=== PATIENT | male | born 1965 | race Caucasian/White ===

== ENCOUNTER → 2016-07-15 | Day surgery (SDC) | payer BC, OTHER ==
[~2016-07-15] MED LIST: ALEVE220 M1 PO; ENZYME DIGEST1 EACH PO; PRILOSEC PO
--- NOTE | ~2016-07-15 | OR ---
Unit #: [id number] #: [id number] Patient: BLAISE CHING [id number] [address] [place], [place] [address] [id number] O MR#: [id number] NAME: BLAISE CHING ROOM: Date of Procedure: 07/15/2016 Admission Date: 07/15/2016 Surgeon: Emil Machado M.D. : 1965 Attending Physician: Emil Machado M.D. Primary Care Physician: Generic Doctor Not In System OPERATIVE REPORT PREOPERATIVE DIAGNOSES Cervical disk disease, cervical spondylosis, neck pain, cervical radiculopathy. POSTOPERATIVE DIAGNOSES Cervical disk disease, cervical spondylosis, neck pain, cervical radiculopathy. PROCEDURE PERFORMED Cervical epidural steroid injection with fluoroscopic guidance for needle localization. INDICATIONS FOR PROCEDURE The patient is a 50-year-old male with 6 to 8 month history of worsening neck and right upper extremity pain that radiates down to his hand. There is no weakness. There is some intermittent numbness. drive or lifting. He is unsure of the specific etiology after some lifting. He failed to settle with conservative measures including chiropractic. Examination is consistent with a radicular irritation. MRI showed pathology with moderately severe neuroforaminal narrowing to the right at the C4-5 level. Also some right-sided facet disease with edema at the C7-T1. Impression is, this is more radicular pain. He has failed to settle with conservative treatment. He has nonsurgical pathology. Plan is for trial of epidural steroids. Risks and benefits of all which have been reviewed. There is a chance that right C7-T1 facet joints may be contributing the problem with this. If he did not settle with the epidurals, we would consider facet injection at that level. DESCRIPTION OF PROCEDURE The patient was placed in the seated position. Standard monitors were applied. Sterile prep and drape of the cervical area was performed. The skin then at the C5 level was localized with 1% lidocaine. An 18-gauge [employer] needle was then advanced via hanging drop technique and fluoroscopic guidance in toward the epidural space. After confirming proper positioning with fluoroscopy and radiographic contrast, 80 mg of Depo-Medrol and 2 mL of preservative-free normal saline were deposited. The patient tolerated the procedure otherwise well and was discharged to the recovery room in stable condition. Dictated by... Unit #: [id number] #: [id number] Patient: BLAISE CHING Jennifer Morton/[place] TD: 07/16/2016 03:56 JOB #: [id number] CC: Dereje Plata M.D. OPERATIVE REPORT Page 1 of 1 X Emil Machado MD X PROCEDURE OPERATIVE NOTE
== END | disposition home or self-care (01) ==
LOC: CCSC 06:52
DX: M50.10 Cervical disc disorder with radiculopathy, unspecified cervical region (principal); M47.22 Other spondylosis with radiculopathy, cervical region
CPT/HCPCS: J1040; J2250

== ENCOUNTER → 2016-07-29 | Day surgery (SDC) | payer BC, OTHER ==
--- NOTE | ~2016-07-29 | OR ---
Unit #: [id number] #: [id number] Patient: BLAISE CHING [id number] [address] [place], [place] [address] [id number] O MR#: [id number] NAME: BLAISE CHING ROOM: Date of Procedure: 07/29/2016 Admission Date: 07/29/2016 Surgeon: Emil Machado M.D. : 1965 Attending Physician: Emil Machado M.D. Primary Care Physician: Generic Doctor Not In System OPERATIVE REPORT PREOPERATIVE DIAGNOSES Neck pain, cervical radiculopathy, cervical facet and disk disease. POSTOPERATIVE DIAGNOSES Neck pain, cervical radiculopathy, cervical facet and disk disease. PROCEDURE PERFORMED Cervical epidural steroid injection with fluoroscopic guidance for needle localization. INDICATIONS FOR PROCEDURE The patient is a 50-year-old male with neck and right upper extremity pain and paresthesia, not settle with conservative treatment. This all started after left has not gotten better and right showed a right-sided both spondylosis, right neural foraminal narrowing at the C4-5 level. At C3-4 and C4-5, there is some mild left neural foraminal narrowing at C7-T1. There is moderate right facet disease with some edema and spurring. Initial epidural steroid injection 2 weeks ago, resulted in excellent control in all components of the pain for about a week, then return of symptoms. Based on a good partial response of his symptoms, pathology, and failure of other modalities, we are going to proceed with a second injection today. Based on the pathology, I do expect a better longer lasting result, he may well benefit from a third injection. DESCRIPTION OF PROCEDURE The patient was placed in a seated position. Standard monitors were applied. Sterile prep and drape of the cervical area was performed. The skin at the C5 level was localized with 1% lidocaine. An 18-gauge [employer] needle was then advanced via hanging drop technique and fluoroscopic guidance in toward the epidural space. The patient did not complain of pain or paresthesia during needle advancement. After confirming proper positioning with fluoroscopy and radiographic contrast, a dose of 80 mg of Depo-Medrol and 2 mL of preservative-free normal saline were deposited. The patient was driving and so no local was used. The needle was flushed and removed. The patient tolerated the entire procedure otherwise well and was discharged to the recovery room in stable condition. Dictated by... Emil Machado M.D. [facility] Unit #: [id number] #: [id number] Patient: BLAISE CHING TD: 07/29/2016 09:53 JOB #: [id number] OPERATIVE REPORT Page 1 of 1 X Emil Machado MD X PROCEDURE OPERATIVE NOTE
== END | disposition home or self-care (01) ==
LOC: CCSC 07:32
DX: M50.121 Cervical disc disorder at C4-C5 level with radiculopathy (principal); M47.22 Other spondylosis with radiculopathy, cervical region; M99.71 Connective tissue and disc stenosis of intervertebral foramina of cervical region
CPT/HCPCS: J1040; J2250

== ENCOUNTER → 2016-10-11 | Outpatient (CLI) | payer BC, OTHER ==
--- NOTE | ~2016-10-11 | CR212 ---
[facility] A Service of [facility] / [facility] RADIOLOGY TEXT RESULTS PATIENT: BLAISE CHING LOCATION: [facility] : [birth year] UNIT #: [id number] AGE: [address]: Rayshawn Valderrama MD SEX: M ORDER DR: [id number] [facility] [address] [place], [place] [address] [id number] O MR#: [id number] Acc #: [id number] NAME: BLAISE CHING : 1965 SEX: M STUDY DATE/TIME: 10/11/2016 15:24 UNIT: [facility] ROOM: STUDY DESCRIPTION: CR Ribs Unilateral 2 View Lt Attending Physician: Rayshawn Valderrama M.D. Referring Physician: Rayshawn Valderrama M.D. Ordering Physician: Rayshawn Valderrama M.D. Primary Care Physician: No Primary Care Physician MEDICAL IMAGING REPORT This report is preliminary unless electronic signature is present EXAM Frontal chest and left rib series. INDICATIONS Left-sided rib pain for the past week after a fall. PROCEDURE Frontal view of the chest with additional views of the left ribs. COMPARISON None. FINDINGS The lungs are clear. Nondisplaced left seventh rib fracture. IMPRESSION Nondisplaced left seventh rib fracture. Dictated by... Luis Leigh M.D. THIS IS AN ELECTRONICALLY VERIFIED REPORT Luis Leigh M.D. at 10/12/2016 8:29 AM EEJillian/maddie TD: 10/12/2016 08:14 JOB #: [id number] MEDICAL IMAGING REPORT Page 1 of 1 COPY
== END | disposition home or self-care (01) ==
LOC: CRAD 15:01
DX: R07.81 Pleurodynia (principal); S22.32XA Fracture of one rib, left side, initial encounter for closed fracture
CPT/HCPCS: 71100